=== PATIENT | female | born 1960 ===

== ENCOUNTER 2023-01-02 08:02 | Inpatient (IN) | payer OTHER ==
[2023-01-01 09:41] LABS: BASOPHILS % (AUTO) 0.6 % (0.0-2.0); EOSINOPHILS # (AUTO) 0.2 K/uL (0-0.4); EOSINOPHILS % (AUTO) 2.4 % (0.0-4.0); HEMATOCRIT 41.6 % (36-48); HEMOGLOBIN 13.9 g/dL (12.0-16.0); LYMPHOCYTES % (AUTO) 24.3 % (20.5-51.1); MEAN CORPUSCULAR HEMOGLOBIN 31 pg (27-31); MEAN CORPUSCULAR HGB CONC 33 g/dL (33-37); MEAN CORPUSCULAR VOLUME 92.7 fL (80-94); MONOCYTES # (AUTO) 0.4 K/uL (0.8-1.0); NEUTROPHILS # (AUTO) 5.6 K/uL (1.8-7.7); NEUTROPHILS % (AUTO) 67.7 % (42.2-75.2); PLATELET COUNT (AUTO) 309 K/uL (140-450); RED BLOOD CELL COUNT(AUTO) 4.48 MIL/uL (4.20-5.40); RED CELL DISTRIBUTION WIDTH 14.6 % (11.6-13.7); WHITE BLOOD COUNT (AUTO) 8.3 K/uL (4.8-10.8)
[2023-01-01 09:52] LABS: ALBUMIN 4.2 g/dL (3.4-5.0); ANION GAP 10.3 (8-16); CREATININE 0.9 mg/dL (0.6-1.3); POTASSIUM 4.3 mmol/L (3.5-5.1); TOTAL BILIRUBIN 0.4 mg/dL (0.0-1.0)
[~2023-01-02] VITALS: Ht 160 cm; Wt 93.0 kg
[2023-01-02] MEDS ORDERED: LIDOCAINE MPF 1% 5 ML ONE (10:26)
[2023-01-02] MEDS ORDERED: BUPIVACAINE-MPF/EPI 0.25% 10 ML VIAL INJ ONE (10:26)
[2023-01-02] MEDS ORDERED: fentaNYL citrate 0.05 MG/ML - 50mL vial IV ONE (11:00)
[2023-01-02] MEDS ORDERED: KETOROLAC 15 MG/ML VIAL ONE (11:00)
[2023-01-02] MEDS ORDERED: SEVOFLURANE 250 ML BTL INH ONE (11:00)
[2023-01-02] MEDS ORDERED: ROCURONIUM 50 MG/5 ML VIAL IV ONE ×3 (11:00→11:56)
[2023-01-02] MEDS ORDERED: PROPOFOL 200 MG/20 ML VIAL IV ONE ×2 (11:00→11:55)
[2023-01-02] MEDS ORDERED: ONDANSETRON 4 MG/2 ML VIAL ONE ×2 (11:00→11:56)
[2023-01-02] MEDS ORDERED: fentaNYL citrate 0.05 MG/ML VIAL ONE (11:06)
[2023-01-02] MEDS ORDERED: ceFAZolin 1,000 MG VIAL ONE (11:56)
[2023-01-02] MEDS ORDERED: KETOROLAC 30 MG/ML VIAL ONE (11:56)
[2023-01-02] MEDS ORDERED: GLYCOPYRROLATE 0.2 MG/ML VIAL ONE ×5 (12:35)
[2023-01-02] MEDS ORDERED: NEOSTIGMINE 1:1000 10 MG/10 ML VIAL ONE ×2 (12:35)
[2023-01-02] MEDS: HYDROmorphone 1 MG/ML AMP IVP PRN ×4 (12:55→13:40)
[2023-01-02] MEDS ORDERED: METOCLOPRAMIDE 10 MG/2 ML INJ VIAL IVP PRN (12:56)
[2023-01-02] MEDS ORDERED: LABETALOL 20 MG/4 ML VIAL IVP PRN (12:56)
[2023-01-02] MEDS ORDERED: hydrALAZINE 20 MG/ML VIAL IVP PRN (12:56)
[2023-01-02] MEDS ORDERED: HYDROcodone/APAP 5/325 MG 1 TAB TAB PO PRN (13:00)
[2023-01-02] MEDS ORDERED: MORPHINE SULFATE 4 MG/ML SYR IV PRN (13:00)
[2023-01-02] MEDS ORDERED: LACTATED RINGERS 1,000 ML IV SCH (13:00)
[2023-01-02] MEDS ORDERED: ACETAMINOPHEN 325 MG TAB PO PRN (13:00)
[2023-01-02] MEDS ORDERED: HYDROmorphone 1 MG/ML AMP IVP PRN (13:00)
[2023-01-02] MEDS ORDERED: HYDROmorphone PFS 2 MG/ML SYR ONE (13:00)
[2023-01-02 15:50] VITALS: BP 86/57
--- NOTE | 2023-01-02 19:58 | NUR ---
received endorsement from [employer] OLEARY (REGISTRY), PATIENT WAS STABLE ON 3 LITERS OF OXYGEN. PATIENT REQUESTED AFTER VITAL SIGNS COMPLETED TO HAVE THE LIGHTS OFF. NURSING AGREED. PATIENT IS AWARE SHE IS ON OBSERVATION AND POSSIBLE DISCHARGE TOMORROW. NO NOTED PAIN/DISCOMFORT AT THIS TIME. NO NOTED RESPIRATORY DISTRESS. SIDE RAILS UP. CALL LIGHT WITHIN REACH. BED IN THE LOWEST LEVEL FOR SAFETY. [id number]
--- NOTE | 2023-01-02 19:59 | NUR ---
Patient's Plan of Care was discussed and reviewed with LISBETH: [id number]
[2023-01-02 20:00] VITALS: BP 98/53
--- NOTE | 2023-01-03 01:02 | NUR ---
PATIENT IN ROOM ASLEEP AT THIS TIME. NO NOTED S/S OF PAIN/DISTRESS. NO RESPIRATORY DISTRESS. [id number]
[2023-01-03 04:00] VITALS: BP 109/67
--- NOTE | 2023-01-03 04:37 | NUR ---
PATIENT IN ROOM ASLEEP AT THIS TIME. NO NOTED S/S OF PAIN/DISTRESS. NO RESPIRATORY DISTRESS. [id number]
--- NOTE | 2023-01-03 07:10 | NUR ---
ENDORSED PATIENT CARE TO RAMÓN RN, PATIENT WAS STABLE DURING CHANGE OF SHIFT. [id number]
[2023-01-03 07:20] LABS: BASOPHILS % (AUTO) 0.1 % (0.0-2.0); EOSINOPHILS % (AUTO) 0.2 % (0.0-4.0); HEMATOCRIT 35.5 % (36-48); HEMOGLOBIN 11.8 g/dL (12.0-16.0); LYMPHOCYTES # (AUTO) 1.2 K/uL (2.5-16.5); LYMPHOCYTES % (AUTO) 9.5 % (20.5-51.1); MEAN CORPUSCULAR HEMOGLOBIN 30 pg (27-31); MEAN CORPUSCULAR HGB CONC 33 g/dL (33-37); MEAN CORPUSCULAR VOLUME 91.7 fL (80-94); MONOCYTES # (AUTO) 0.6 K/uL (0.8-1.0); MONOCYTES % (AUTO) 4.9 % (1.7-9.3); NEUTROPHILS # (AUTO) 11.1 K/uL (1.8-7.7); NEUTROPHILS % (AUTO) 85.3 % (42.2-75.2); PLATELET COUNT (AUTO) 253 K/uL (140-450); RED BLOOD CELL COUNT(AUTO) 3.87 MIL/uL (4.20-5.40); RED CELL DISTRIBUTION WIDTH 14.7 % (11.6-13.7)
[2023-01-03 07:52] LABS: ALBUMIN 3.4 g/dL (3.4-5.0); ANION GAP 11.2 (8-16); CREATININE 0.9 mg/dL (0.6-1.3); POTASSIUM 4.2 mmol/L (3.5-5.1); TOTAL BILIRUBIN 0.5 mg/dL (0.0-1.0)
[2023-01-03 16:34] VITALS: BP 122/78
== END 2023-01-03 19:20 | disposition home or self-care (01) | DRG 419 ==
LOC: MOR 08:02 → MMU 08:03 → MTU 16:00 → MOR 16:00 → MTU 19:51
PROVIDERS: ADMIT Surgery; ATTEND Surgery
PROC: 0DNU4ZZ Release Omentum, Percutaneous Endoscopic Approach (ICD-10-PCS; 2023-01-02)
PROC: 0FT44ZZ Resection of Gallbladder, Percutaneous Endoscopic Approach (ICD-10-PCS; principal; 2023-01-02 10:00)
DX: K80.10 Calculus of gallbladder with chronic cholecystitis without obstruction (principal); E66.9 Obesity, unspecified; Z68.36 Body mass index [BMI] 36.0-36.9, adult; Z20.822 Contact with and (suspected) exposure to COVID-19
CPT/HCPCS: 36415; 80053; 82374; 85025; 86886; 86900; 86901; J0690; J1170; J1885; J2001; J2270; J2405; J2704; J2710; J3010; J3490; J7030; J7060